=== PATIENT | female | born 1935 | race Caucasian/White ===

== ENCOUNTER 2018-10-13 09:58 | Observation (INO) | payer MEDICARE, BC ==
[2018-10-12 16:26] VITALS: Ht 170.2 cm; Wt 81.5 kg
[~2018-10-13] VITALS: Ht 170.2 cm; Wt 81.5 kg
[2018-10-13] VITALS (31 sets, daily range): BP systolic 94–144; BP diastolic 45–72; PULSE 60–92; RESP 12–28
[~2018-10-13 09:58] MED LIST: CEFAZOLIN 1 GM INJ ONE; EPHEDrine 25 MG/5 ML SYG ONE; GLYCOPYRROLATE 0.4 MG INJ ONE; NEOSTIGMINE 3 MG/3 ML SYRINGE ONE; SEVOFLURANE 15 MIN ONE
[2018-10-13] MEDS ORDERED: VALS1TAB12 PO (10:45)
[2018-10-13] MEDS ORDERED: LEVO88TA42 PO (10:45)
[2018-10-13] MEDS ORDERED: SIMV40TA2 PO (10:46)
[2018-10-13] MEDS ORDERED: METO-319 PO (10:47)
[2018-10-13] MEDS ORDERED: AMLO1TAB12 PO (10:47)
[2018-10-13] MEDS ORDERED: OMEG-158 PO (10:48)
[2018-10-13] MEDS ORDERED: CYAN100T PO (10:48)
--- NOTE | 2018-10-13 11:39 | HPN ---
Date/Time of Note Date/Time of Note DATE: 10/13/18 TIME: 11:38 Interval H&P Admission Note Pt. seen H&P reviewed: No system changes JUSTEN PUGA MD Oct 13, 2018 11:39
--- NOTE | 2018-10-13 11:57 | PREAC ---
Date/Time of Note Date/Time of Note DATE: 10/13/18 TIME: 11:57 Anesthesia Eval and Record Evaluation Time Pre-Procedure Interview DATE: 10/13/18 TIME: 11:57 Age 83 Sex female NPO: 8 hrs Meds Reported Medications [place]-3/Dha/Epa/Fish Oil (FISH OIL 1,000 MG SOFTGEL) 1 Each Capsule, 1 EACH PO DAILY, CAP 10/13/18 Cyanocobalamin* (Vitamin B12*) 100 Mcg Tab, 100 MCG PO DAILY, TAB 10/13/18 Amlodipine/Valsartan (Exforge 5-160 mg Tablet) 1 Each Tablet, 1 EACH PO DAILY, TAB 10/13/18 Metoprolol Succinate* (Toprol XL*) 50 Mg Tab.er.24h, 50 MG PO DAILY, #30 TAB 10/13/18 Simvastatin* (Zocor*) 40 Mg Tablet, 40 MG PO QHS, #30 TAB 10/13/18 Levothyroxine Sodium* (Levoxyl*) 88 Mcg Tablet, 88 MCG PO BEFORE BREAKFAST, #30 TAB 10/13/18 Valsartan/Hydrochlorothiazide (Diovan Hct 160-25 mg Tablet) 1 Each Tablet, 1 EACH PO DAILY, TAB 10/13/18 Allergies Coded Allergies: latex (Verified Allergy, Unknown, RASH, 10/13/18) Pre-procedure Exam Last vitals Vital Signs Date Temp Pulse Resp B/P (MAP) Pulse Ox O2 O2 Flow FiO2 Time Delivery Rate 10/13/18 97.9 68 16 133/63 98 Room Air 11:49 (86) Pre-operative Attestations Prior to commencing anesthesia and surgery, the patient was re-evaluated, there was verification of: *The patient's identity *The results of appropriate recent lab work and preoperative vital signs *The above evaluation not changing prior to induction *Anesthetic plan, risk benefits, alternative and complications discussed with patient/family; questions answered; patient/family understands, accepts and wishes to proceed. NAI SAHNI MD Oct 13, 2018 11:57
--- NOTE | 2018-10-13 11:59 | PREAC ---
Date/Time of Note Date/Time of Note DATE: 10/13/18 TIME: 11:57 Anesthesia Eval and Record Evaluation Time Pre-Procedure Interview DATE: 10/13/18 TIME: 11:57 Age 83 Sex female NPO: 8 hrs Preoperative diagnosis lumbar 3-4, lumbar 4-5 degenerative disc disease spinal stenosis Planned procedure L3-L4, L4-L5 lumbar decompression possible discectomy Past Medical History Past Medical History: Includes Cardio: HTN, Dyslipidemia Endo: Hypothyroid Surgery & Anesthesia Issues No known issue Meds Anticoagulation: No Beta Jessica within 24 hr: Yes Reason Beta Jessica not given: Bradycarida, Hypotension Reported Medications [place]-3/Dha/Epa/Fish Oil (FISH OIL 1,000 MG SOFTGEL) 1 Each Capsule, 1 EACH PO DAILY, CAP 10/13/18 Cyanocobalamin* (Vitamin B12*) 100 Mcg Tab, 100 MCG PO DAILY, TAB 10/13/18 Amlodipine/Valsartan (Exforge 5-160 mg Tablet) 1 Each Tablet, 1 EACH PO DAILY, TAB 10/13/18 Metoprolol Succinate* (Toprol XL*) 50 Mg Tab.er.24h, 50 MG PO DAILY, #30 TAB 10/13/18 Simvastatin* (Zocor*) 40 Mg Tablet, 40 MG PO QHS, #30 TAB 10/13/18 Levothyroxine Sodium* (Levoxyl*) 88 Mcg Tablet, 88 MCG PO BEFORE BREAKFAST, #30 TAB 10/13/18 Valsartan/Hydrochlorothiazide (Diovan Hct 160-25 mg Tablet) 1 Each Tablet, 1 EACH PO DAILY, TAB 10/13/18 Meds reviewed: Yes Allergies Coded Allergies: latex (Verified Allergy, Unknown, RASH, 10/13/18) Allergies Reviewed: Yes Labs/Studies Labs Reviewed: Reviewed by anesthesiologist test: N/A Studies: ECG, CXR, Stress test Pre-procedure Exam Last vitals Vital Signs Date Temp Pulse Resp B/P (MAP) Pulse Ox O2 O2 Flow FiO2 Time Delivery Rate 10/13/18 97.9 68 16 133/63 98 Room Air 11:49 (86) Airway: Adequate mouth opening, Adequate thyromental dist Mallampati: Mallampati II Teeth: Abnormal (dentures) Lung: Normal Heart: Normal ASA Physical Status ASA physical status: 2 Emergency: None Planned Anesthetic General/MAC: ETT Planned Pain Management Parenteral pain med Pre-operative Attestations Prior to commencing anesthesia and surgery, the patient was re-evaluated, there was verification of: *The patient's identity *The results of appropriate recent lab work and preoperative vital signs *The above evaluation not changing prior to induction *Anesthetic plan, risk benefits, alternative and complications discussed with patient/family; questions answered; patient/family understands, accepts and wishes to proceed. NAI SAHNI MD Oct 13, 2018 11:59
[2018-10-13] MEDS ORDERED: GELATIN SIZE 100 SPONGE ONE ×2 (12:01→15:52)
[2018-10-13] MEDS ORDERED: POLYMYXIN/BACITRACIN 1L IRRIG ONE (12:01)
[2018-10-13] MEDS ORDERED: BUPIVACAINE 0.5%/EPI (SDV) 30 ML INJ ONE (12:01)
[2018-10-13] MEDS ORDERED: THROMBIN 5000 UNIT VIAL ONE (12:09)
[2018-10-13] MEDS ORDERED: ONDANSETRON 4 MG INJ ONE (13:02)
[2018-10-13] MEDS ORDERED: FAMOTIDINE 20 MG INJ ONE (13:02)
[2018-10-13] MEDS ORDERED: DEXAMETHASONE 4 MG/ML 5 ML INJ ONE (13:02)
[2018-10-13] MEDS ORDERED: LIDOCAINE 2% (SDV) 5 ML INJ ONE (13:03)
[2018-10-13] MEDS ORDERED: ROCURONIUM 50 MG INJ ONE (13:03)
[2018-10-13] MEDS ORDERED: PROPOFOL 20 ML ONE (13:03)
[2018-10-13] MEDS ORDERED: SUCCINYLCHOLINE CHLORIDE 100 MG/5 ML SYG IV ONE (13:03)
[2018-10-13] MEDS ORDERED: EPHEDrine 25 MG/5 ML SYG ONE ×2 (13:05→16:36)
[2018-10-13] MEDS ORDERED: NEOSTIGMINE 3 MG/3 ML SYRINGE ONE (16:24)
[2018-10-13] MEDS ORDERED: GLYCOPYRROLATE 0.4 MG INJ ONE (16:24)
[2018-10-13] MEDS ORDERED: AL HYDROX/MG HYDROX/SIMETH 30 ML CUP PO PRN (16:30)
[2018-10-13] MEDS ORDERED: NACL 0.9% 3 ML SYG IV SCH (16:30)
[2018-10-13] MEDS ORDERED: ONDANSETRON 4 MG INJ IV PRN ×2 (16:30→17:00)
[2018-10-13] MEDS ORDERED: NALOXONE (0.4 MG/ML) INJ IV PRN (16:30)
[2018-10-13] MEDS ORDERED: PROCHLORPERAZINE 10 MG TAB PO PRN (16:30)
[2018-10-13] MEDS ORDERED: HYDROCODONE/APAP (5/325) TAB PO PRN ×2 (16:30)
--- NOTE | 2018-10-13 16:39 | OPR ---
Date/Time of Note Date/Time of Note DATE: 10/13/18 TIME: 16:30 Operative Report Free Text/Dictation DATE OF OPERATION: 10/13/2018 PREOPERATIVE DIAGNOSES: 1. L4-5 severe spinal stenosis with neurogenic claudication 2. Large central L4-5 Herniated Nucleus pulposis with radiculopathy 3. L3-4 spinal stenosis with neurogenic claudication 4.Adult degenerative Lumbar scoliosis POSTOPERATIVE DIAGNOSES: 1. L4-5 severe spinal stenosis with neurogenic claudication 2. Large central L4-5 Herniated Nucleus pulposis with radiculopathy 3. L3-4 spinal stenosis with neurogenic claudication 4.Adult degenerative Lumbar scoliosis OPERATION PERFORMED: 1. L4-5 bilateral laminectomy, medial facetectomy, and foraminotomy 2. L3-4 bilateral laminectomy, medial facetectomy, and foraminotomy 3. L4-5 microdiskectomy 4. Interpretation of Neuromonitoring SURGEON: Justen Puga MD PHLEBOTOMY LAB ASSISTANT: LORENZO Forte ANESTHESIA: General endotracheal ESTIMATED BLOOD LOSS: 250 mL SURGICAL INDICATION: The patient is a 83 year-old female who presents with a chronic increasing of bilateral extremity pain and numbness that is worst with ambulation. The patient was unable to ambulate significant distances secondary to their pain. [place]'s symptoms failed to improve with a conservative course of treatment. . Risks, benefits, and alternatives to a decompressive and diskectomy procedure including but not exclusive of risks of bleeding, infection, nerve injury, cauda equina syndrome, iatrogenic instability, dural tear, myocardial infarction, stroke, pulmonary embolism were explained to the patient, and she wished to proceed. DESCRIPTION OF TECHNIQUE: The patient was identified in the preoperative area and taken to the operating room. Rapid induction of general endotracheal anesthesia was performed. Patient was given 2 g of cefazolin for prophylaxis. The patient was then placed in the prone position on the Kameron table on top of a Ruiz frame with all bony prominences well padded. The back was prepped and draped in usual sterile manner. A time out was held. Using a spinal needle and intraoperative fluoroscopy, the L4-5 level was clearly identified. The skin was injected using 0.5% marcaine with epinephrine. Longitudinal midline incision was then created using a 10 blade. Further dissection through soft tissue was performed using electrocautery down to the spinous processes bilaterally. Dissection was taken down the bilateral lamina and over the facet joint capsule. A self-retaining retractor was applied. Again, intraoperative fluoroscopy confirmed the level. A rongeur was used to remove a portion of the L4 spinous process and the interspinous ligaments. We identified the interlaminar window. The microscope was brought into use for microdissection. The high-speed bur was used to thin the L4 lamina. Kerrison rongeurs were then used to resect a the lamina, and a portion of the medial facet and the bone overlying the foramen. Ligamentum flavum was also resected using the Kerrison rongeurs. Care was taken to protect the thecal sac throughout the decompressive procedure. The dural was the retracted in a medial direction using a nerve root retarctor. The Extruded disk was identified. The pseudoannulus was incised using a 15 blade. The extru ded disk fragments were removed using a series of curettes and pituitaries. The extruded fragments were removed to a stable base. No further fragments were identified. Palpation with a ball-tip probe did not reveal any further stenosis in the central, subarticular, or foraminal areas. The bilateral L5 and L4 pedicles were palpated using a brianne to ensure a pedicle to pedicle deco mpression. The exiting L4 nerve root and traversing L5 nerve roots were both directly visualized and noted to be decompressed. The cephalad and caudad extent of the decompression were also confirmed using ball-tip probes and intraoperative fluoroscopy. We then focused on the L3-4 level. The L3-4 level was clearly identified using fluoroscopy. The skin was injected using1% lidocaine with epinephrine. Longitudinal midline incision was extended proximally using a 10 blade. Further dissection through soft tissue was performed using electrocautery down to the spinous processes bilaterally. Dissection was taken down the bilateral lamina and over the facet joint capsule. A self-retaining retractor was applied. Again, intraoperative fluoroscopy confirmed the level. A rongeur was used to remove a portion of the L3 spinous process and the interspinous ligaments. We identified the interlaminar window. The microscope was brought into use for microdissection. The high-speed bur was used to thin the L3 lamina. Kerrison rongeurs were then used to resect a the lamina, and a portion of the medial facet and the bone overlying the foramen. Ligamentum flavum was also resected using the Kerrison rongeurs. Care was taken to protect the thecal sac throughout the decompressive procedure. Palpation with a ball-tip probe did not reveal any further stenosis in the central, subarticular, or foraminal areas. The bilateral L3 and L4 pedicles were palpated using a brianne to ensure a pedicle to pedicle decompression. The exiting L3 nerve root and traversing L4 nerve roots were both directly visualized and noted to be decompressed. The cephalad and caudad extent of the decompression were also confirmed using ball-tip probes and intraoperative fluoroscopy. The wound was irrigated copiously using normal saline. Meticulous attention was paid toward hemostasis using bipolar cautery, FloSeal and thrombin. Care was taken to remove all FloSeal prior to wound closure. The fascia was then closed using 0 Vicryl in interrupted fashion over a medium hemovac. Subcutaneous tissue was closed using 2-0 Vicryl in interrupted fashion. Skin was closed using a running 4-0 Monocryl stitch. The wound was dressed using Dermabond, sterile gauze and Tegaderm. The patient was returned to the supine position. They were extubated immediately postoperatively and taken to the recovery room in stable condition. The patient has a significant lumabr scoliotic deformity which made dissection and safe decompression more difficult due to her altered anatomy. This procedure took an additional 45 minutes. COMPLICATIONS: None. Procedure Date: Oct 13, 2018 Preoperative Diagnosis 1. L4-5 severe spinal stenosis with neurogenic claudication 2. Large central L4-5 Herniated Nucleus pulposis with radiculopathy 3. L3-4 spinal stenosis with neurogenic claudication 4.Adult degenerative Lumbar scoliosis Postoperative Diagnosis 1. L4-5 severe spinal stenosis with neurogenic claudication 2. Large central L4-5 Herniated Nucleus pulposis with radiculopathy 3. L3-4 spinal stenosis with neurogenic claudication 4.Adult degenerative Lumbar scoliosis Operation/Procedure Performed 1. L4-5 bilateral laminectomy, medial facetectomy, and foraminotomy 2. L3-4 bilateral laminectomy, medial facetectomy, and foraminotomy 3. L4-5 microdiskectomy 4. Interpretation of Neuromonitoring Surgeon see signature line [employer] LORENZO Forte Anesthesia Type: general Estimated Blood Loss: 200 - 250 ml's Transfusion none Specimen L4-5 disk, ligamentum lesion Grafts/Implants none Complications none Pt Condition Post Procedure: stable Disposition: PACU Procedure Description DESCRIPTION OF TECHNIQUE: The patient was identified in the preoperative area and taken to the operating room. Rapid induction of general endotracheal anesthesia was performed. Patient was given 2 g of cefazolin for prophylaxis. The patient was then placed in the prone position on the Kameron table on top of a Ruiz frame with all bony prominences well padded. The back was prepped and draped in usual sterile manner. A time out was held. Using a spinal needle and intraoperative fluoroscopy, the L4-5 level was clearly identified. The skin was injected using 0.5% marcaine with epinephrine. Longitudinal midline incision was then created using a 10 blade. Further dissection through soft tissue was performed using electrocautery down to the spinous processes bilaterally. Dissection was taken down the bilateral lamina and over the facet joint capsule. A self-retaining retractor was applied. Again, intraoperative fluoroscopy confirmed the level. A rongeur was used to remove a portion of the L4 spinous process and the interspinous ligaments. We identified the interlaminar window. The microscope was brought into use for microdissection. The high-speed bur was used to thin the L4 lamina. Kerrison rongeurs were then used to resect a the lamina, and a portion of the medial facet and the bone overlying the foramen. Ligamentum flavum was also resected using the Kerrison rongeurs. Care was taken to protect the thecal sac throughout the decompressive procedure. The dural was the retracted in a medial direction using a nerve root retarctor. The Extruded disk was identified. The pseudoannulus was incised using a 15 blade. The extruded disk fragments were removed using a series of curettes and pituitaries. The extruded fragments were removed to a stable base. No further fragments were identified. Palpation with a ball-tip probe did not reveal any further stenosis in the central, subarticular, or foraminal areas. The bilateral L5 and L4 pedicles were palpated using a brianne to ensure a pedicle to pedicle decompression. The exiting L4 nerve root and traversing L5 nerve roots were both directly visualized and noted to be decompressed. The cephalad and caudad extent of the decompression were also confirmed using ball-tip probes and intraoperative fluoroscopy. We then focused on the L3-4 level. The L3-4 level was clearly identified using fluoroscopy. The skin was injected using1% lidocaine with epinephrine. Longitudinal midline incision was extended proximally using a 10 blade. Further dissection through soft tissue was performed using electrocautery down to the spinous processes bilaterally. Dissection was taken down the bilateral lamina and over the facet joint capsule. A self-retaining retractor was applied. Again, intraoperative fluoroscopy confirmed the level. A rongeur was used to remove a portion of the L3 spinous process and the interspinous ligaments. We identified the interlaminar window. The microscope was brought into use for microdissection. The high-speed bur was used to thin the L3 lamina. Kerrison rongeurs were then used to resect a the lamina, and a portion of the medial facet and the bone overlying the foramen. Ligamentum flavum was also resected using the Kerrison rongeurs. Care was taken to protect the thecal sac throughout the decompressive procedure. Palpation with a ball-tip probe did not reveal any further stenosis in the central, subarticular, or foraminal areas. The bilateral L3 and L4 pedicles were palpated using a brianne to ensure a pedicle to pedicle decompression. The exiting L3 nerve root and traversing L4 nerve roots were both directly visualized and noted to be decompressed. The cephalad and caudad extent of the decompression were also confirmed using ball-tip probes and intraoperative fluoroscopy. The wound was irrigated copiously using normal saline. Meticulous attention was paid toward hemostasis using bipolar cautery, FloSeal and thrombin. Care was taken to remove all FloSeal prior to wound closure. The fascia was then closed using 0 Vicryl in interrupted fashion over a medium hemovac. Subcutaneous tissue was closed using 2-0 Vicryl in interrupted fashion. Skin was closed using a running 4-0 Monocryl stitch. The wound was dressed using Dermabond, sterile gauze and Tegaderm. The patient was returned to the supine position. They were extubated immediately postoperatively and taken to the recovery room in stable condition. The patient has a significant lumabr scoliotic deformity which made dissection and safe decompression more difficult due to her altered anatomy. This procedure took an additional 45 minutes. COMPLICATIONS: None. JUSTEN PUGA MD Oct 13, 2018 16:39
[2018-10-13] MEDS ORDERED: FENTAnyl 50 MCG/ML VIAL IV PRN (17:00)
[2018-10-13] MEDS ORDERED: MEPERIDINE 25 MG INJ IV PRN (17:00)
[2018-10-13] MEDS ORDERED: HYDROmorphONE 1 MG/5 ML IV SYRINGE IV PRN ×3 (17:00)
[2018-10-13] MEDS ORDERED: PROCHLORPERAZINE 10 MG INJ IV PRN (17:00)
[2018-10-13] MEDS ORDERED: DIPHENHYDRAMINE 50 MG INJ IV PRN (17:00)
[2018-10-13] MEDS ORDERED: HYDROmorphONE 0.5 MG/0.5 ML SYG IV PRN (17:00)
--- NOTE | 2018-10-13 17:04 | PAC ---
Date/Time of Note Date/Time of Note DATE: 10/13/18 TIME: 17:00 Post-Anesthesia Notes Post-Anesthesia Note Last documented vital signs Vital Signs Date Temp Pulse Resp B/P (MAP) Pulse Ox O2 O2 Flow FiO2 Time Delivery Rate 10/13/18 97.9 68 16 133/63 98 Room Air 11:49 (86) Activity: WNL Respiratory function: WNL Cardiovascular function: WNL Mental status: Baseline Pain reasonably controlled: Yes Hydration appropriate: Yes Nausea/Vomiting absent: Yes Comments BP: 116/71 HR: 73 RR: 15 t: 99.9 sAo2: 200 NAI SAHNI MD Oct 13, 2018 17:04
[2018-10-13] MEDS: ACETAMINOPHEN 1000MG/100ML IV 100 ML IVPB SCH (17:52)
[2018-10-13] MEDS: CEFAZOLIN 1 GM/50 ML (PMX) 50 ML IVPB SCH (17:52)
[2018-10-13] MEDS: DEXTROSE 5%-0.45% NACL 1,000 ML IV SCH (20:49)
--- NOTE | 2018-10-14 00:17 | CONS ---
DATE OF ADMISSION: 10/13/2018 DATE OF CONSULTATION: TYPE OF CONSULTATION: Medical. Thank you, Dr. Puga for asking me to participate in medical management of this patient. REASON FOR CONSULTATION: To manage the patient's hypertension, hypothyroidism and hyperlipidemia. HISTORY OF PRESENT ILLNESS: This 83-year-old female is now in the recovery room after undergoing a l umbar spine surgery by Dr. Puga. The patient had preoperatively low back pain with radiation to both buttocks. She had an L3-L4 and L4-L5 lumbar decompression and diskectomy. The patient is awak e and alert. She is in the recovery room. She has no pain. She denies any chest pain or shortness of breath. PAST MEDICAL HISTORY: Low back pain, degenerative disorder of the macula, hypertension, hypothyroidi sm, hyperlipidemia. FAMILY HISTORY: Father history of emphysema, at age 70. Mother myocardial infarction, at age 83. 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 She does not drink alcohol. She is a former s moker, but has not smoked in 20 years. She is a . PREVIOUS SURGERY: Cataract. CURRENT MEDICATIONS: Includes the followin. Alprazolam 0.25 mg at bedtime. 2. Amlodipine and valsartan combination pill 5 mg with valsartan 160 mg, which she took this morning . 3. Bactrim-DS 1 tablet every 12 hours, which she took for 3 days, starting on 09/29/2018. 4. Fish oil 120/180 daily. 5. Gabapentin 300 mg as needed. 6. Levothyroxine 88 mcg a day. 7. Meloxicam 15 mg a day as needed for pain, which was discontinued preoperatively. 8. Metoprolol succinate extended release 50 mg a day. 9. Simvastatin 40 mg at bedtime daily. ALLERGIES: NO KNOWN DRUG ALLERGIES. PHYSICAL EXAMINATION: GENERAL: At this time reveals a well-developed female in no apparent distress. She is awake and anna rt. VITAL SIGNS: Pulse of 89, blood pressure 105/51, O2 saturation of 100% on 2 liter nasal cannula. HEAD: Normocephalic. EYES: Extraocular muscles intact. NOSE AND MOUTH: Normal. NECK: Supple. No neck vein distention. LUNGS: Clear to auscultation. HEART: Regular rhythm. No murmurs, gallops or rubs. ABDOMEN: Soft, nontender. No masses or megaly. EXTREMITIES: No peripheral edema. VITAL SIGNS: Pulse of 89, blood pressure 105/51, O2 saturation of 100% on 2 liter nasal cannula. IMPRESSION: This patient is now postop lumbar spine surgery for low back pain and radiculopathy. Sh e is awake and alert. She does not have any pain. She seems comfortable. I will manage the patient 's medical problems including hypertension, hypothyroidism and hyperlipidemia. PLAN: 1. Resume routine medications. 2. Check labs in the morning. 3. Postop lumbar spine surgery protocol. 4. I will follow the patient along with you medically. Dictated By: DAGOBERTO SKAGGS MD ND/NTS Conf#: [id number] DID#: [id number] CC: MEENA AZUL MD; JUSTEN PUGA MD;*End*
[2018-10-14] MEDS: ACETAMINOPHEN 1000MG/100ML IV 100 ML IVPB SCH (01:00)
[2018-10-14] MEDS: CEFAZOLIN 1 GM/50 ML (PMX) 50 ML IVPB SCH ×3 (01:15→12:10)
[2018-10-14] MEDS: DEXTROSE 5%-0.45% NACL 1,000 ML IV SCH ×3 (02:22→22:22)
[2018-10-14 04:00] VITALS: BP 101/50; PULSE 91; RESP 18
[2018-10-14] MEDS: ACETAMINOPHEN 325 MG TAB PO PRN ×2 (04:31→20:10)
[2018-10-14] MEDS: LEVOTHYROXINE 88 MCG TAB PO SCH (06:13)
[2018-10-14 07:32] VITALS: BP 103/51; PULSE 77; RESP 18
--- NOTE | 2018-10-14 07:57 | CONS ---
Consultation Date/Type/Reason Admit Date/Time Oct 13, 2018 at 09:58 Initial Consult Date Date/Time of Note DATE: 10/14/18 TIME: 07:54 24 HR Interval Summary Free Text/Dictation S: 83 yo F POD#1 s/p L3-L5 decompression w/ diskectomy. Patient had no acute events over night. Pain is controlled w/ PO pain meds. O: Vital Signs Date Temp Pulse Resp B/P (MAP) Pulse Ox O2 O2 Flow FiO2 Time Delivery Rate 10/14/18 98.4 77 18 103/51 100 07:32 (68) 10/13/18 2.0 21:00 10/13/18 Nasal 20:30 Cannula Gen: AAOx3, NAD Spine: Neurointact, 09/11 bl TA/GS/EHL, +DEMETRI L3-S1 Labs: Laboratory Tests Test 10/14/18 04:55 10/14/18 07:29 Hemoglobin 9.5 g/dl Hematocrit 27.5 % Sodium Level 135 mmol/L Potassium Level 4.0 mmol/L Chloride Level 100 mmol/L Carbon Dioxide Level 24 mmol/L Anion Gap 11 Blood Urea Nitrogen 21 mg/dl Creatinine 1.17 mg/dl Est Glomerular Filtrat Rate mL/min mL/min Glucose Level 188 mg/dl Calcium Level 8.2 mg/dl Lab Scanned Report REFERENCE LAB [id number] Current Medications Medications Dose Sig/Ivet Start Time Status Last (Trade) Ordered Route PRN Stop Time Admin Dose Reason Admin Gelatin 1 sponge STK-MED 10/13/18 DC (Gelatin ONCE .ROUTE 12:10/13/18 Size 100 12:02 Sponge) Bupivacaine 30 ml STK-MED 10/13/18 DC 10/13/18 HCl/ ONCE .ROUTE 12:10/13/18 13:14 30 ML Epinephrine 12:02 Bitart (Marcaine 0.5%/ Epi (Sdv)) Bacitracin/ 1,000 ml STK-MED 10/13/18 DC 10/13/18 Polymyxin B ONCE .ROUTE 12:10/13/18 13:14 1,000 Sulfate (Pb 12:02 ML Solution) Thrombin 10,000 units STK-MED 10/13/18 DC (Thrombin) ONCE .ROUTE 12:10/13/18 12:10 Ondansetron 4 mg STK-MED 10/13/18 DC HCl (Zofran ONCE .ROUTE 13:02 10/13/18 Inj) 13:03 20 mg STK-MED 10/13/18 DC Dexamethasone ONCE .ROUTE 13:10/13/18 (Decadron) 13:03 Famotidine 20 mg STK-MED 10/13/18 DC (Pepcid Iv) ONCE .ROUTE 13:02 10/13/18 13:03 Propofol 20 ml @ ud STK-MED 10/13/18 DC ONCE .ROUTE 13:03 10/13/18 13:04 100 mg STK-MED 10/13/18 DC Succinylcholi ONCE IV 13:03 10/13/18 ne Chloride 13:04 (Anectine Syringe) Rocuronium 50 mg STK-MED 10/13/18 DC Hector ONCE .ROUTE 13:10/13/18 (Zemuron) 13:04 Lidocaine 100 mg STK-MED 10/13/18 DC (Xylocaine ONCE .ROUTE 13:03 10/13/18 2% (Sdv)) 13:04 Fentanyl 5 ml @ ud STK-MED 10/13/18 DC ONCE .ROUTE 13:03 10/13/18 13:04 Ephedrine 25 mg STK-MED 10/13/18 DC Sulfate ONCE .ROUTE 13:05 10/13/18 13:06 Gelatin 1 sponge STK-MED 10/13/18 DC (Gelatin ONCE .ROUTE 15:52 10/13/18 Size 100 15:53 Sponge) Neostigmine 3 mg STK-MED 10/13/18 DC Methylsulfate ONCE .ROUTE 16:24 10/13/18 16:25 (Neostigmine) 0.4 mg STK-MED 10/13/18 DC Glycopyrrolat ONCE .ROUTE 16:24 10/13/18 e (Robinul) 16:25 1,000 ml @ Q10H IV 10/13/18 10/14/18 Dextrose/Sodi 100 mls/hr 16:22 06:11 100 um Chloride MLS/HR 1 tab Q4H PRN 10/13/18 Acetaminophen PO .PAIN 1-5 16:30 / Hydrocodone Bitart (Cassandra (5/325)) 2 tab Q4H PRN 10/13/18 Acetaminophen PO .PAIN 16:30 / 6-10 Hydrocodone Bitart (Cassandra (5/325)) Cefazolin 50 ml @ Q6 IVPB 10/13/18 10/14/18 Sodium 100 mls/hr 18:00 10/14/18 06:13 100 12:29 MLS/HR 10 mg Q4H PRN 10/13/18 Prochlorperaz PO 16:30 ine NAUSEA/VOMITI (Compazine) NG Ondansetron 4 mg Q6H PRN 10/13/18 HCl (Zofran IV 16:30 Inj) NAUSEA/VOMITI NG Al 15 ml Q4H PRN 10/13/18 Hydrox/Mg PO 16:30 Hydrox/Simeth .CONSTIPATION icone (Mag-Al Plus) Docusate 100 mg BID PO 10/14/18 Sodium 09:00 (Colace) 650 mg Q4H PRN 10/13/18 10/14/18 Acetaminophen PO TEMP 16:30 04:31 650 MG (Tylenol GREATER THAN Tab) 101F OR MATHEW IV Flush 3 ml PER 10/13/18 (NS 3 ml) PROTOCOL IV 16:30 Naloxone 0.2 mg Q2M PRN 10/13/18 HCl IV RR 8 16:30 (Narcan) BREATHS/MIN OR LESS Ephedrine 25 mg STK-MED 10/13/18 DC Sulfate ONCE .ROUTE 16:36 10/13/18 16:37 0.2 mg PACU PRN 10/13/18 DC Hydromorphone IV MILD PAIN 17:00 10/13/18 HCl 1-3 21:00 (Dilaudid) 0.4 mg PACU PRN 10/13/18 DC Hydromorphone IV MOD PAIN 17:00 10/13/18 HCl 4-6 21:00 (Dilaudid) 0.6 mg PACU PRN 10/13/18 DC Hydromorphone IV SEVERE 17:00 10/13/18 HCl PAIN 7-10 21:00 (Dilaudid) Fentanyl 25 mcg PACU ORDER 10/13/18 DC (Sublimaze) PRN IV MILD 17:00 10/13/18 PAIN 1-3 21:00 Ondansetron 4 mg PACU ORDER 10/13/18 DC HCl (Zofran PRN IV 17:00 10/13/18 Inj) NAUSEA/VOMITI 21:00 NG 5 mg PACU ORDER 10/13/18 DC Prochlorperaz PRN IV 17:00 10/13/18 ine NAUSEA/VOMITI 21:00 (Compazine NG Inj) Meperidine 12.5 mg PACU ORDER 10/13/18 DC HCl PRN IV 17:00 10/13/18 (Demerol) .RIGORS 21:00 12.5 mg PACU ORDER 10/13/18 DC Diphenhydrami PRN IV 17:00 10/13/18 ne HCl .PRURITUS 21:00 (Benadryl) 100 ml @ Q8H IVPB 10/13/18 10/13/18 Acetaminophen 400 mls/hr 17:00 10/14/18 17:52 400 08:59 MLS/HR 0.5 mg Q4H PRN 10/13/18 Hydromorphone IV SEVERE 17:00 HCl PAIN LEVEL (Dilaudid) 7-10 88 mcg BEFORE 10/14/18 10/14/18 Levothyroxine BREAKFAST 07:00 06:13 88 MCG Sodium PO (Synthroid) Metoprolol 50 mg DAILY PO 10/14/18 Succinate 09:00 (Toprol Xl) 40 mg QHS PO 10/14/18 DC Miscellaneous 21:00 10/14/18 Information 21:00 Amlodipine 5 mg DAILY PO 10/14/18 Besylate 09:00 (Norvasc) Losartan 50 mg DAILY PO 10/14/18 Potassium 09:00 (Cozaar) 20 mg DAILY@21 10/14/18 Atorvastatin PO 21:00 Calcium (Lipitor) A/P: 83 yo F POD#1 s/p L3-5 decompression w/ diskectomy 1. OOB w/ PT today 2. D/C drake if ok w/ PT 3. Appreciate med recs for elev BUN/Creat 4. Monitor closely Exam/Review of Systems Exam Vitals Vital Signs Date Temp Pulse Resp B/P (MAP) Pulse Ox O2 O2 Flow FiO2 Time Delivery Rate 10/14/18 98.4 77 18 103/51 100 07:32 (68) 10/13/18 2.0 21:00 10/13/18 Nasal 20:30 Cannula Intake and Output 10/13/18 10/13/18 10/14/18 1515:00 23:00 07:00 IntakeIntake Total 2100 ml 1100 ml OutputOutput Total 765 ml 1040 ml BalanceBalance 1335 ml 60 ml Results Result Diagram: 10/14/18 0455 10/14/18 0455 Results 24hrs Laboratory Tests Test 10/14/18 04:55 10/14/18 07:29 Hemoglobin 9.5 L Hematocrit 27.5 L Sodium Level 135 Potassium Level 4.0 Chloride Level 100 Carbon Dioxide Level 24 Anion Gap 11 Blood Urea Nitrogen 21 H Creatinine 1.17 H Est Glomerular Filtrat Rate mL/min Glucose Level 188 Calcium Level 8.2 L Lab Scanned Report REFERENCE LAB Medications Medication Current Medications Dextrose/Sodium Chloride 1,000 ml @ 100 mls/hr Q10H IV Last administered on 10/14/18at 06:11; Admin Dose 100 MLS/HR; Start 10/13/18 at 16:22 Acetaminophen/ Hydrocodone Bitart (Cassandra (5/325)) 1 tab Q4H PRN PO .PAIN 1-5; Start 10/13/18 at 16:30 Acetaminophen/ Hydrocodone Bitart (Cassandra (5/325)) 2 tab Q4H PRN PO .PAIN 6-10; Start 10/13/18 at 16:30 Cefazolin Sodium 50 ml @ 100 mls/hr Q6 IVPB Last administered on 10/14/18at 06:13; Admin Dose 100 MLS/HR; Start 10/13/18 at 18:00; Stop 10/14/18 at 12:29 Prochlorperazine (Compazine) 10 mg Q4H PRN PO NAUSEA/VOMITING; Start 10/13/18 at 16:30 Ondansetron HCl (Zofran Inj) 4 mg Q6H PRN IV NAUSEA/VOMITING; Start 10/13/18 at 16:30 Al Hydrox/Mg Hydrox/Simethicone (Mag-Al Plus) 15 ml Q4H PRN PO .CONSTIPATION; Start 10/13/18 at 16:30 Docusate Sodium (Colace) 100 mg BID PO ; Start 10/14/18 at 09:00 Acetaminophen (Tylenol Tab) 650 mg Q4H PRN PO TEMP GREATER THAN 101F OR MATHEW Last administered on 10/14/18at 04:31; Admin Dose 650 MG; Start 10/13/18 at 16:30 IV Flush (NS 3 ml) 3 ml PER PROTOCOL IV ; Start 10/13/18 at 16:30 Naloxone HCl (Narcan) 0.2 mg Q2M PRN IV RR 8 BREATHS/MIN OR LESS; Start 10/13/18 at 16:30 Acetaminophen 100 ml @ 400 mls/hr Q8H IVPB Last administered on 10/13/18at 17:52; Admin Dose 400 MLS/HR; Start 10/13/18 at 17:00; Stop 10/14/18 at 08:59 Hydromorphone HCl (Dilaudid) 0.5 mg Q4H PRN IV SEVERE PAIN LEVEL 7-10; Start 10/13/18 at 17:00 Levothyroxine Sodium (Synthroid) 88 mcg BEFORE BREAKFAST PO Last administered on 10/14/18at 06:13; Admin Dose 88 MCG; Start 10/14/18 at 07:00 Metoprolol Succinate (Toprol Xl) 50 mg DAILY PO ; Start 10/14/18 at 09:00 Amlodipine Besylate (Norvasc) 5 mg DAILY PO ; Start 10/14/18 at 09:00 Losartan Potassium (Cozaar) 50 mg DAILY PO ; Start 10/14/18 at 09:00 Atorvastatin Calcium (Lipitor) 20 mg DAILY@21 PO ; Start 10/14/18 at 21:00 JUSTEN PUGA MD Oct 14, 2018 07:57
[2018-10-14] MEDS ORDERED: METOPROLOL (XL) 50 MG TAB PO SCH (09:00)
[2018-10-14] MEDS ORDERED: AMLODIPINE 5 MG TAB PO SCH ×2 (09:00→20:00)
--- NOTE | 2018-10-14 09:26 | CONS ---
Assessment/Plan Assessment/Plan Hospital Course (Demo Recall) 1. Divine is now 1 day post op a lumbar spine surgery . She is up walking with PT . She has very little pain . Her vital signs are stable and she is afebrile . I will put in parameters to hold anti hypertensive medication if BP is too low . She can continue PT as tolerated . 2. H/H is lower than expected . Will repeat labs in am . Consultation Date/Type/Reason Admit Date/Time Oct 13, 2018 at 09:58 Initial Consult Date Date/Time of Note DATE: 10/14/18 TIME: 09:16 24 HR Interval Summary Free Text/Dictation Divine is now 1 day postop a lumbar spine surgery. She is up walking with p hysical therapy. She is up walking with PT . She has very little pain . Constitutional: no complaints, improved Exam/Review of Systems Exam Vitals Vital Signs Date Temp Pulse Resp B/P (MAP) Pulse Ox O2 O2 Flow FiO2 Time Delivery Rate 10/14/18 98.4 77 18 103/51 100 07:32 (68) 10/13/18 2.0 21:00 10/13/18 Nasal 20:30 Cannula Intake and Output 10/13/18 10/13/18 10/14/18 1515:00 23:00 07:00 IntakeIntake Total 2100 ml 1100 ml OutputOutput Total 765 ml 1040 ml BalanceBalance 1335 ml 60 ml Constitutional: alert, oriented, well developed Respiratory: clear to auscultation, normal air movement Cardiovascular: regular rate and rhythm Gastrointestinal: soft, non-tender Musculoskeletal: nl extremities to inspection Results Result Diagram: 10/14/18 0455 10/14/18 0455 Results 24hrs Laboratory Tests Test 10/14/18 04:55 10/14/18 07:29 Hemoglobin 9.5 L Hematocrit 27.5 L Sodium Level 135 Potassium Level 4.0 Chloride Level 100 Carbon Dioxide Level 24 Anion Gap 11 Blood Urea Nitrogen 21 H Creatinine 1.17 H Est Glomerular Filtrat Rate mL/min Glucose Level 188 Calcium Level 8.2 L Lab Scanned Report REFERENCE LAB Medications Medication Current Medications Dextrose/Sodium Chloride 1,000 ml @ 100 mls/hr Q10H IV Last administered on 10/14/18at 06:11; Admin Dose 100 MLS/HR; Start 10/13/18 at 16:22 Acetaminophen/ Hydrocodone Bitart ([place] (5/325)) 1 tab Q4H PRN PO .PAIN 1-5; Start 10/13/18 at 16:30 Acetaminophen/ Hydrocodone Bitart ([place] (5/325)) 2 tab Q4H PRN PO .PAIN 6-10; Start 10/13/18 at 16:30 Cefazolin Sodium 50 ml @ 100 mls/hr Q6 IVPB Last administered on 10/14/18at 06:13; Admin Dose 100 MLS/HR; Start 10/13/18 at 18:00; Stop 10/14/18 at 12:29 Prochlorperazine (Compazine) 10 mg Q4H PRN PO NAUSEA/VOMITING; Start 10/13/18 at 16:30 Ondansetron HCl (Zofran Inj) 4 mg Q6H PRN IV NAUSEA/VOMITING; Start 10/13/18 at 16:30 Al Hydrox/Mg Hydrox/Simethicone (Mag-Al Plus) 15 ml Q4H PRN PO .CONSTIPATION; Start 10/13/18 at 16:30 Docusate Sodium (Colace) 100 mg BID PO ; Start 10/14/18 at 09:00 Acetaminophen (Tylenol Tab) 650 mg Q4H PRN PO TEMP GREATER THAN 101F OR MATHEW Last administered on 10/14/18at 04:31; Admin Dose 650 MG; Start 10/13/18 at 16:30 IV Flush (NS 3 ml) 3 ml PER PROTOCOL IV ; Start 10/13/18 at 16:30 Naloxone HCl (Narcan) 0.2 mg Q2M PRN IV RR 8 BREATHS/MIN OR LESS; Start 10/13/18 at 16:30 Hydromorphone HCl (Dilaudid) 0.5 mg Q4H PRN IV SEVERE PAIN LEVEL 7-10; Start 10/13/18 at 17:00 Levothyroxine Sodium (Synthroid) 88 mcg BEFORE BREAKFAST PO Last administered on 10/14/18at 06:13; Admin Dose 88 MCG; Start 10/14/18 at 07:00 Losartan Potassium (Cozaar) 50 mg DAILY PO ; Start 10/14/18 at 09:00 Atorvastatin Calcium (Lipitor) 20 mg DAILY@21 PO ; Start 10/14/18 at 21:00 Amlodipine Besylate (Norvasc) 5 mg DAILY PO ; Start 10/14/18 at 20:00; Status UNV Metoprolol Succinate (Toprol Xl) 50 mg DAILY PO ; Start 10/14/18 at 12:00; Status UNV DAGOBERTO SKAGGS MD Oct 14, 2018 09:26
[2018-10-14] MEDS: LOSARTAN 50 MG TAB PO SCH (09:31)
[2018-10-14] MEDS: DOCUSATE SODIUM 100 MG CAP PO SCH ×2 (09:31→20:09)
[2018-10-14] MEDS: METOPROLOL (XL) 50 MG TAB PO SCH (12:13)
[2018-10-14 14:55] VITALS: BP 100/66; PULSE 89; RESP 18
[2018-10-14 20:25] VITALS: BP 115/55; PULSE 69; RESP 18
[2018-10-14] MEDS ORDERED: ATORVASTATIN 20 MG TAB PO SCH (21:00)
[2018-10-14] MEDS ORDERED: NON-FORMULARY/PATIENT OWN MED (Simvastatin* (Zocor*) 40 MG) PO SCH (21:00)
[2018-10-15] MEDS: DEXTROSE 5%-0.45% NACL 1,000 ML IV SCH (00:06)
[2018-10-15 02:10] VITALS: BP 123/58; PULSE 72; RESP 17
[2018-10-15] MEDS: LEVOTHYROXINE 88 MCG TAB PO SCH (06:07)
[2018-10-15 07:44] VITALS: BP 127/60; PULSE 71; RESP 18
[2018-10-15] MEDS: DOCUSATE SODIUM 100 MG CAP PO SCH (08:14)
[2018-10-15] MEDS: LOSARTAN 50 MG TAB PO SCH (08:14)
[2018-10-15] MEDS: ACETAMINOPHEN 325 MG TAB PO PRN (08:57)
[2018-10-15] MEDS ORDERED: POLYETHYLENE GLYCOL 17 GM PACKET PO ONE (09:00)
--- NOTE | 2018-10-15 09:00 | PDOCDIS ---
Discharge Instructions CONDITION [id number] Patient Condition: [id number] Good HOME CARE INSTRUCTIONS: [id number] Diet Instructions: [id number] Regular ACTIVITY: [id number] Activity Restrictions: [id number] Avoid heavy lifting [id number] Bathing Restrictions: [id number] Shower FOLLOW UP/APPOINTMENTS Follow-up Plan Follow-up with Dr. Puga in 2 weeks JUSTEN PUGA MD Oct 15, 2018 09:00
[2018-10-15] MEDS: METOPROLOL (XL) 50 MG TAB PO SCH (11:35)
== END 2018-10-15 11:53 | disposition home or self-care (01) ==
LOC: INTOOBSV 09:58 → REC 09:58 → MS1 20:25
PROVIDERS: ADMIT Orthopaedic Surgery; ATTEND Orthopaedic Surgery
DX: M48.062 Spinal stenosis, lumbar region with neurogenic claudication (principal); M51.16 Intervertebral disc disorders with radiculopathy, lumbar region; M41.9 Scoliosis, unspecified; I10 Essential (primary) hypertension; E03.9 Hypothyroidism, unspecified; E78.5 Hyperlipidemia, unspecified; Z87.891 Personal history of nicotine dependence
CPT/HCPCS: 63030; 63047; 72114; 80048; 80053; 82728; 83540; 85014; 85018; 85025; 87086; 88304; 97116; 97162; 97530; G0378; J0131; J0690; J1100; J2405; J2710; J3010; J7042; 99217